=== PATIENT | female | born 1940 | race Caucasian/White ===

== ENCOUNTER 2025-04-09 11:38 | Inpatient (IN) | payer OTHER ==
[~2025-04-09] VITALS: Ht 167.6 cm; Wt 64.3 kg
[2025-04-09 12:49] LABS: VENOUS BASE EXCESS -4.5 (-2.0-2.0); VENOUS HCO3 21.6 MMOL/L (23.0-27.0); VENOUS O2 SATURATION 61.1 % (60.0-80.0); VENOUS PARTIAL PRESSURE CO2 43.4 mmHg (38.0-50.0); VENOUS PARTIAL PRESSURE O2 36.9 mmHg (30.0-50.0); VENOUS PH 7.315 UNITS (7.330-7.430); VENOUS STANDARD HCO3 20.0 MMOL/L; VENOUS TOTAL CO2 22.9 MMOL/L (24.0-28.0)
[2025-04-09 12:53] LABS: BASO # 0.0 10^3/uL (0.0-0.2); BASO % 0.5 % (0.0-1.0); EOS # 0.0 10^3/uL (0.0-0.5); EOS % 0.4 % (0.0-3.0); LYMPH # 1.3 10^3/uL (1.5-5.0); LYMPH % 15.6 % (24.0-44.0); MONO # 0.5 10^3/uL (0.0-0.8); MONO % 5.6 % (2.0-8.0); NEUTROPHILS # 6.6 10^3/uL (1.5-8.5); NEUTROPHILS % 77.3 % (36.0-66.0); PLATELET COUNT, AUTOMATED 306 10^3/uL (150-450)
[2025-04-09 13:16] LABS: OSMOLALITY SERUM 310 MOSM/KG (280-301)
[2025-04-09 13:19] LABS: ETHYL ALCOHOL (ETHANOL) < 0.003 % (0.000-0.010)
[2025-04-09 13:20] LABS: SALICYLATE LEVEL < 3.0 MG/DL (<30)
[2025-04-09 13:21] LABS: ALT/SGPT 26 U/L (7.0-40); AST/SGOT 29 U/L (<34); CALCIUM LEVEL 8.6 MG/DL (8.3-10.6); CARBON DIOXIDE LEVEL 23 MMOL/L (20-31); CHLORIDE LEVEL 112 MMOL/L (98-107); CREATININE FOR GFR 0.77 MG/DL (0.55-1.30); GLOMERULAR FILTRATION RATE 75.6 (>32); POTASSIUM SERUM 4.1 MMOL/L (3.5-5.1); SODIUM LEVEL 145 MMOL/L (136-145)
[2025-04-09] MEDS: NS (Normal Saline) 0.9% 1,000 ML IV SCH (13:42)
[2025-04-09] MEDS: NS 500 ML IV ONE ×2 (13:42→16:48)
[2025-04-09 14:40] LABS: KETONE, URINE AUTO RFX NEGATIVE (NEGATIVE); MUCUS, URINE RFX SMALL (NEGATIVE); NITRITE, URINE AUTO RFX NEGATIVE (NEGATIVE); RBC, URINE AUTO RFX 33 /HPF (0-3); SQUAM EPITHELIAL CELL UR AURFX 2 /HPF (0-6); YEAST LIKE CELL URINE AUTO RFX LARGE
[2025-04-09 14:51] LABS: LEUKOCYTE ESTERASE UR AUTO RFX 2+ (NEGATIVE); WBC, URINE AUTO RFX 35 /HPF (0-3)
[2025-04-09 15:15] LABS: AMPHETAMINES LEVEL URINE NEGATIVE (NEGATIVE); BARBITURATES URINE NEGATIVE (NEGATIVE); CANNABINOIDS URINE NEGATIVE (NEGATIVE); COCAINE METABOLITE URINE NEGATIVE (NEGATIVE); METHADONE URINE NEGATIVE (NEGATIVE); OPIATES URINE NEGATIVE (NEGATIVE); PHENCYCLIDINE URINE NEGATIVE (NEGATIVE)
[2025-04-09] MEDS ORDERED: METOPROLOL TART 25 MG TABLET PO ONE (15:15)
[2025-04-09] MEDS ORDERED: METOPROLOL 5 MG/5 ML VIAL IV SCH (15:15)
[2025-04-09 15:16] LABS: BENZODIAZEPINES URINE NEGATIVE (NEGATIVE)
[2025-04-09] MEDS: LevoFLOXacin IV 750 MG in IV 1 EA IV ONE (15:30)
[2025-04-09] MEDS: METOPROLOL TART 50 MG TAB PO ONE (18:18)
[2025-04-09] MEDS ORDERED: LOSA25TA13 PO (20:10)
[2025-04-09] MEDS ORDERED: ACET1TAB55 PO (20:18)
[2025-04-09] MEDS ORDERED: XALA0.007 OU (20:18)
[2025-04-09] MEDS ORDERED: ELIQ2.5T PO (20:18)
[2025-04-09] MEDS ORDERED: MELA5TAB44 PO (20:18)
[2025-04-09] MEDS ORDERED: FERR1TAB8 PO (20:18)
[2025-04-09] MEDS ORDERED: ONDA-83 PO (20:21)
[2025-04-09] MEDS ORDERED: SPIR-10 PO (20:21)
[2025-04-09] MEDS ORDERED: METR-369 PO (20:21)
[2025-04-09] MEDS ORDERED: METO50TA7 PO (20:21)
[2025-04-09] MEDS ORDERED: HOME MED LIST COMPLETE! XX SCH (20:25)
[2025-04-09] MEDS ORDERED: MOM 30 ML SUSPENSION UDC PO PRN (20:40)
[2025-04-09] MEDS ORDERED: MAALOX 30 ML SUSP *UDC PO PRN (20:40)
[2025-04-09] MEDS: LATANOPROST 0.005% OPHTH SOLN 2.5 ML OU SCH (21:00)
[2025-04-09] MEDS: APIXABAN 2.5 MG TAB PO SCH (22:02)
[2025-04-09] MEDS: SODIUM CHLORIDE 0.9% 1000 ML IV SCH (22:02)
[2025-04-09] MEDS: ACETAMINOPHEN 325 MG TAB PO PRN (22:03)
[2025-04-09] MEDS: DOCUSATE SODIUM 100 MG CAPSULE PO SCH (22:03)
[2025-04-09] MEDS: METOPROLOL TART 50 MG TAB PO SCH (22:03)
[2025-04-09] MEDS: OLANZapine INTRAMUSCULAR 10MG VIAL IM STA (23:48)
[2025-04-09] MEDS: diphenhydrAMINE 50 MG/ML VIAL IV ONE (23:59)
[2025-04-10] VITALS (7 sets, daily range): BP systolic 108–141; BP diastolic 63–99; TEMP 96.8–97.8; O2SAT 88–99
[2025-04-10] MEDS: LR 1,000 ML IV SCH (01:21)
[2025-04-10 05:19] LABS: PLATELET COUNT, AUTOMATED 269 10^3/uL (150-450)
[2025-04-10 05:52] LABS: ALT/SGPT 22.0 U/L (7.0-40); AST/SGOT 24.0 U/L (<34); CALCIUM LEVEL 8.1 MG/DL (8.3-10.6); CARBON DIOXIDE LEVEL 23.0 MMOL/L (20-31); CHLORIDE LEVEL 114.0 MMOL/L (98-107); CREATININE FOR GFR 0.73 MG/DL (0.55-1.30); GLOMERULAR FILTRATION RATE 80.5 (>32); MAGNESIUM LEVEL 1.7 MG/DL (1.8-2.4); POTASSIUM SERUM 4.6 MMOL/L (3.5-5.1); SODIUM LEVEL 149.0 MMOL/L (136-145)
[2025-04-10] MEDS: SPIRONOLACTONE 25 MG TAB PO SCH (09:00)
[2025-04-10] MEDS: LOSARTAN 25 MG TAB PO SCH (09:00)
[2025-04-10] MEDS: LR 1,000 ML IV ONE (09:51)
[2025-04-10] MEDS: VANCOMYCIN HCL 1,000 MG, VIAL MATE ADAPTER 1 EACH in NS 250 ML IV ONE (12:06)
[2025-04-10] MEDS: LevoFLOXacin IV 750 MG in IV 1 EA IV SCH (14:36)
[2025-04-10] MEDS ORDERED: LevoFLOXacin IV 500 MG in IV 1 EA IV ONE (15:30)
[2025-04-10] MEDS: VANCOMYCIN HCL 750 MG, VIAL MATE ADAPTER 1 EACH in NS 250 ML IV SCH (20:17)
[2025-04-10] MEDS: OLANZapine 5 MG TAB PO ONE (22:32)
[2025-04-10] MEDS: MAG SULF 1GM/100ML (MAG RUN) 1 GM in IV 1 EA IV ONE (23:47)
[2025-04-11 03:11] VITALS: BP 121/83; TEMP 96.6; O2SAT 99
[2025-04-11 07:28] LABS: BASO # 0.0 10^3/uL (0.0-0.2); BASO % 0.2 % (0.0-1.0); EOS # 0.0 10^3/uL (0.0-0.5); EOS % 0.1 % (0.0-3.0); LYMPH # 1.5 10^3/uL (1.5-5.0); LYMPH % 14.1 % (24.0-44.0); MONO # 0.5 10^3/uL (0.0-0.8); MONO % 4.6 % (2.0-8.0); NEUTROPHILS # 8.7 10^3/uL (1.5-8.5); NEUTROPHILS % 80.4 % (36.0-66.0); PLATELET COUNT, AUTOMATED 291 10^3/uL (150-450)
[2025-04-11 07:42] VITALS: BP 155/89; TEMP 97; O2SAT 96
[2025-04-11 07:57] LABS: CALCIUM LEVEL 8.3 MG/DL (8.3-10.6); CARBON DIOXIDE LEVEL 22.0 MMOL/L (20-31); CHLORIDE LEVEL 114.0 MMOL/L (98-107); CREATININE FOR GFR 0.83 MG/DL (0.55-1.30); GLOMERULAR FILTRATION RATE 69.0 (>32); POTASSIUM SERUM 4.4 MMOL/L (3.5-5.1); SODIUM LEVEL 146.0 MMOL/L (136-145)
[2025-04-11] MEDS: VANCOMYCIN HCL 1,250 MG, VIAL MATE ADAPTER 1 EACH in NS 250 ML IV SCH (09:04)
[2025-04-11 14:00] VITALS: BP 121/78; TEMP 97; O2SAT 94
[2025-04-11 16:00] VITALS: BP 124/76; TEMP 97; O2SAT 96
[2025-04-11 19:23] VITALS: BP 125/84; TEMP 97.4; O2SAT 94
[2025-04-11] MEDS: OLANZapine 5 MG TAB PO SCH (20:30)
[2025-04-11 23:13] VITALS: BP 110/69; TEMP 97.6; O2SAT 95
[2025-04-12 03:10] VITALS: BP 117/90; TEMP 97.2; O2SAT 96
[2025-04-12 05:46] LABS: BASO # 0.0 10^3/uL (0.0-0.2); BASO % 0.2 % (0.0-1.0); EOS # 0.1 10^3/uL (0.0-0.5); EOS % 0.9 % (0.0-3.0); LYMPH # 1.3 10^3/uL (1.5-5.0); LYMPH % 10.8 % (24.0-44.0); MONO # 0.8 10^3/uL (0.0-0.8); MONO % 6.2 % (2.0-8.0); NEUTROPHILS # 9.9 10^3/uL (1.5-8.5); NEUTROPHILS % 81.4 % (36.0-66.0); PLATELET COUNT, AUTOMATED 294 10^3/uL (150-450)
[2025-04-12 06:18] LABS: CALCIUM LEVEL 8.4 MG/DL (8.3-10.6); CARBON DIOXIDE LEVEL 22.0 MMOL/L (20-31); CHLORIDE LEVEL 115.0 MMOL/L (98-107); CREATININE FOR GFR 0.77 MG/DL (0.55-1.30); GLOMERULAR FILTRATION RATE 75.6 (>32); POTASSIUM SERUM 4.5 MMOL/L (3.5-5.1); SODIUM LEVEL 147.0 MMOL/L (136-145)
[2025-04-12] MEDS ORDERED: VANCOMYCIN HCL 1,000 MG in IV FLUID PLACE HOLDER 1 EA IV SCH (07:55)
[2025-04-12 08:55] VITALS: BP 156/99; TEMP 96.8; O2SAT 96
[2025-04-12] MEDS: D5W 500 ML IV ONE (08:55)
[2025-04-12 09:16] LABS: VANCOMYCIN RANDOM 11.8 UG/ML
[2025-04-12] MEDS: D5W/0.45% SODIUM CHLORIDE 1,000 ML IV SCH (09:41)
[2025-04-12] MEDS: cefTRIAXone SOD 1 GM in DEXTROSE 5% (D5W) ADV/MINI-BAG 50 ML IV SCH (09:41)
[2025-04-12] MEDS: VANCOMYCIN HCL 1,250 MG, VIAL MATE ADAPTER 1 EACH in NS 250 ML IV SCH (11:59)
[2025-04-12 14:41] VITALS: BP 148/90
[2025-04-12] MEDS: FUROSEMIDE 40 MG/4 ML VIAL IV ONE (14:41)
[2025-04-12] MEDS ORDERED: BISACODYL 10 MG SUPP PR PRN (15:05)
[2025-04-12 15:15] VITALS: O2SAT 81; O2SAT 82
[2025-04-12] MEDS: LEVALBUTEROL 1.25 MG 0.5ML CONCENTRATE NEB NEB ONE (15:23)
[2025-04-12 15:30] VITALS: O2SAT 81
[2025-04-12 15:45] VITALS: O2SAT 81
[2025-04-12] MEDS ORDERED: LEVALBUTEROL 1.25 MG 0.5ML CONCENTRATE NEB INH PRN (16:05)
[2025-04-12] MEDS: SCOPOLAMINE 1MG TRANSDERMAL PATCH TOP SCH (16:29)
[2025-04-12] MEDS: LORazepam 0.5 MG TAB PO PRN (16:29)
[2025-04-12] MEDS ORDERED: ALBUTEROL SULFATE 2.5 MG/0.5 ML INH CONCENTRATE NEB SOLN NEB SCH (20:00)
[2025-04-12] MEDS ORDERED: LEVALBUTEROL 1.25 MG 0.5ML CONCENTRATE NEB INH SCH (20:00)
[2025-04-13] MEDS ORDERED: FUROSEMIDE 40 MG/4 ML VIAL IV SCH (09:00)
[2025-04-13] MEDS: LORazepam 0.5 MG TAB SL PRN (10:58)
[2025-04-13] MEDS: MORPHINE 10 MG/0.5 ML ORAL CONCENTRATE SOLUTION U/D SL PRN (12:43)
[2025-04-15] MEDS: NYSTATIN 100,000 UNITS/GM TOPICAL PWD 15 GM TOP SCH (23:19)
[2025-04-16 18:02] VITALS: BP 156/99; TEMP 96.8; O2SAT 81
[2025-04-17] MEDS ORDERED: MORPHINE SULFATE INJ 100 MG in NS 90 ML IV SCH (16:00)
[2025-04-17] MEDS: LORazepam 0.5 MG TAB SL PRN (16:21)
[2025-04-17] MEDS: MORPHINE 10 MG/0.5 ML ORAL CONCENTRATE SOLUTION U/D SL PRN (16:21)
[2025-04-19] MEDS: MORPHINE 10 MG/0.5 ML ORAL CONCENTRATE SOLUTION U/D SL PRN (11:40)
[2025-04-20] MEDS ORDERED: ATROPINE SULFATE 1% OPHTH SOLN 2 ML BTL SL PRN (10:45)
== END 2025-04-20 11:05 | disposition expired | DRG 871 ==
LOC: M ED 11:38 → EDBD 11:38 → M ED INP 20:40 → M PCU 04-10 00:15 → M MS5PR 04-13 15:13
PROVIDERS: ADMIT Student in an Organized Health Care Education/Training Program; ATTEND Internal Medicine Nephrology
DX: A41.81 Sepsis due to Enterococcus (principal); G93.41 Metabolic encephalopathy; J96.01 Acute respiratory failure with hypoxia; J69.0 Pneumonitis due to inhalation of food and vomit; I50.32 Chronic diastolic (congestive) heart failure; N39.0 Urinary tract infection, site not specified; E87.0 Hyperosmolality and hypernatremia; E87.20 Acidosis, unspecified; I11.0 Hypertensive heart disease with heart failure; D50.9 Iron deficiency anemia, unspecified; F41.9 Anxiety disorder, unspecified; F32.A Depression, unspecified; R29.6 Repeated falls; F43.10 Post-traumatic stress disorder, unspecified; G47.00 Insomnia, unspecified; Z51.5 Encounter for palliative care; Z66 Do not resuscitate; B96.20 Unspecified Escherichia coli [E. coli] as the cause of diseases classified elsewhere; R54 Age-related physical debility; I48.91 Unspecified atrial fibrillation; R13.10 Dysphagia, unspecified; E83.42 Hypomagnesemia; H40.9 Unspecified glaucoma; R57.1 Hypovolemic shock; F03.90 Unspecified dementia, unspecified severity, without behavioral disturbance, psychotic disturbance, mood disturbance, and anxiety; R26.89 Other abnormalities of gait and mobility; Z79.01 Long term (current) use of anticoagulants; Z79.899 Other long term (current) drug therapy; Z88.0 Allergy status to penicillin; Z86.711 Personal history of pulmonary embolism; Z86.718 Personal history of other venous thrombosis and embolism; Z86.73 Personal history of transient ischemic attack (TIA), and cerebral infarction without residual deficits